=== PATIENT | female | born 1940 | race Hispanic/Latino ===

== ENCOUNTER → 2021-11-30 | Outpatient (CLI) | payer MEDICARE ==
[~2021-11-30] MED LIST: IOPAMIDOL 370 MG/ML 200 ML INFUS..BTL INJ ONE; METOPROLOL TARTRATE INJ 1 MG/ML VIAL ONE; NITROGLYCERIN 0.4 MG SUBL ONE; SODIUM CHLORIDE 0.9% 100 ML ONE
[2021-11-30 08:51] LABS: CREATININE, SERUM 0.78 mg/dL (0.57-1.11)
== END ==
LOC: CT 08:10
PROVIDERS: ATTEND Internal Medicine Cardiovascular Disease
DX: Z01.818 Encounter for other preprocedural examination (principal); R07.9 Chest pain, unspecified; R94.39 Abnormal result of other cardiovascular function study
CPT/HCPCS: 36415; 75574; 82565; 84520; J7050; Q9967

== ENCOUNTER → 2025-02-13 | Outpatient (REF) | payer MEDICARE, OTHER | LOC: RAD 15:48 | PROVIDERS: ATTEND Internal Medicine | DX: M25.512 Pain in left shoulder (principal); M25.552 Pain in left hip; M79.672 Pain in left foot; W19.XXXA Unspecified fall, initial encounter ==

== ENCOUNTER → 2025-09-17 | Outpatient (REF) | payer MEDICARE, OTHER | LOC: RAD 12:37 | PROVIDERS: ATTEND Nurse Practitioner | DX: Z12.11 Encounter for screening for malignant neoplasm of colon (principal); K59.09 Other constipation | CPT/HCPCS: 74018 ==